=== PATIENT | female | born 1990 | race Caucasian/White ===

== ENCOUNTER 2020-03-28 08:00 | Inpatient (IN) ==
[2020-03-28] MEDS ORDERED: Lidocaine 1% 20 ML MDV INFILT PRN (08:13)
[2020-03-28] MEDS ORDERED: miSOPROStoL 25 MCG TABLET PO PRN (08:13)
[2020-03-28] MEDS ORDERED: Naloxone 0.4 MG/ML INJ IVP PRN ×2 (08:13→09:39)
[2020-03-28] MEDS ORDERED: Metoclopramide 10 MG/2 ML VIAL IVP PRN (08:13)
[2020-03-28] MEDS ORDERED: *HR* Nalbuphine 10 MG/ML AMPUL IV PRN (08:13)
[2020-03-28] MEDS ORDERED: Famotidine 20 MG/2 ML VIAL IVP PRN (08:13)
[2020-03-28 08:57] LABS: Basophils % 0.3 %; Eosinophils # 0.1 K/mcL (0.0-0.6); Eosinophils % 0.6 %; Immature Granulocytes % 0.4 % (0-4); Lymphocytes % 22.6 %; Mean Corpuscular HGB Conc 31.4 g/dL (31.6-35.5); Mean Corpuscular Volume 85.8 fL (83.0-100.0); Mean Platelet Volume 12.7 fL (9.4-12.4); Monocytes # 0.5 K/mcL (0.0-1.3); Monocytes % 6.2 %; Neutrophils # 5.4 K/mcL (1.6-8.9); Platelet Count 155 K/mcL (140-400); Red Blood Count 4.08 M/mcL (3.82-4.97); Segmented Neutrophils % 69.9 %; White Blood Count 7.7 K/mcL (4.3-11.1)
[2020-03-28 08:58] LABS: Lymphocytes # 1.7 K/mcL (0.6-4.6); Platelet Estimate Normal (Normal)
[2020-03-28] MEDS ORDERED: Penicillin G Potassium 5,000,000 UNIT in 0.9 % Sodium Chloride Mini Bag 100 ML IVPB ONE (09:05)
[2020-03-28 09:06] LABS: Amphetamine Screen,Urine Negative ng/mL (Cutoff=1000); Barbiturate Screen,Urine Negative ng/mL (Cutoff=200); Benzodiazepines Screen,Urine Negative ng/mL (Cutoff=200); Cannabinoid Screen,Urine Negative ng/mL (Cutoff = 50); Cocaine Screen,Urine Negative ng/mL (Cutoff= 300); Opiate Screen,Urine Negative ng/mL (Cutoff=300); Phencyclidine Screen,Urine Negative ng/mL (Cutoff=25)
[2020-03-28] MEDS: Ringers Solution, Lactated 1,000 ML IVC SCH ×2 (09:32→13:44)
[2020-03-28] MEDS ORDERED: Ropivacaine/PF 0.2% 20 ML VIAL EP ONE (09:39)
[2020-03-28] MEDS ORDERED: Ondansetron 4 MG/2 ML VIAL IVP PRN (09:39)
[2020-03-28] MEDS ORDERED: EPHEDrine 50 MG/ML VIAL IVP PRN (09:39)
[2020-03-28] MEDS ORDERED: Oxytocin 20 units/ LR 1000 mL 20 UNIT/1,000 ML BAG IVC SCH ×2 (09:45→15:42)
[2020-03-28] MEDS ORDERED: Epidural Premix (fent/bupiv) 110 ML EP SCH (09:45)
[2020-03-28] MEDS ORDERED: Penicillin G Potassium 2,500,000 UNIT in 0.9 % Sodium Chloride 100 ML IVPB SCH (12:00)
[2020-03-28] MEDS ORDERED: Ropivacaine/PF 0.2% 20 ML VIAL ONE (13:38)
[2020-03-28] MEDS ORDERED: Lanolin 7 G OINT...G. TP PRN (15:42)
[2020-03-28] MEDS ORDERED: Benzocaine/Menthol 56 GM AEROSOL SPRAY TP PRN (15:42)
[2020-03-28] MEDS ORDERED: Acetaminophen 325 MG TABLET PO PRN (15:42)
[2020-03-28] MEDS ORDERED: Oxytocin 20 units/ LR 1000 mL 20 UNIT/1,000 ML BAG IVC ONE (15:42)
[2020-03-28] MEDS ORDERED: Rho Immune Globulin 1,500 UNIT SYRINGE IM PRN (15:42)
[2020-03-28] MEDS: Ibuprofen 600 MG TABLET PO PRN ×2 (17:58→23:42)
[2020-03-29] MEDS: Ibuprofen 600 MG TABLET PO PRN (08:11)
[2020-03-29] MEDS ORDERED: Prenatal Vit/FA 1 EACH TABLET PO SCH (09:00)
[2020-03-29 10:09] VITALS: BP 101/65
== END 2020-03-29 15:15 | disposition home or self-care (01) | DRG 560 ==
LOC: 1NENULAB 08:00 → 1NENUOBS 17:00
PROVIDERS: ADMIT Advanced Practice Midwife; ATTEND Advanced Practice Midwife